=== PATIENT | female | born 1985 | race Two or more races ===

== ENCOUNTER 2020-01-26 16:13 | Emergency (ER) | payer SELFPAY ==
[~2020-01-26] VITALS: Ht 160 cm; Wt 72.6 kg
[2020-01-26 16:15] VITALS: BP 112/75
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
--- NOTE | 2020-01-26 16:35 | NUR ---
ED Nurse Note: Dr. Son is at bedside doing physical exam.
[2020-01-26] MEDS ORDERED: LIDODERM700 M1 TOPIC (16:41)
[2020-01-26] MEDS ORDERED: ROBAXIN-750750 MG PO (16:41)
[2020-01-26] MEDS ORDERED: ONDANSETRON ODT4 MG BC (16:41)
[2020-01-26] MEDS ORDERED: ACETAMINOPHEN325 M1 ORAL (16:41)
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
--- NOTE | 2020-01-26 16:54 | NUR ---
ED Nurse Note: patient changed into a hospital gown and skin assessment was done, no open skin or bruises noted at this time. skin intact dry. confirmed with Dr. Son that patient has pain, Dr. Son provided prescriptions for pain. instructions about prescriptions given to the patient, patient verbalized understanding.
[2020-01-26 16:56] VITALS: BP 119/72
--- NOTE | 2020-01-26 16:56 | NUR ---
ER DISCHARGE NOTE: Patient is cleared to be discharged per ERMD Dr Son, pt is aox4, on room air, with stable vital signs. pt was given dc and prescription instructions, pt was able to verbalize understanding, pt id band removed without complications. pt is able to ambulate with steady gait. pt took all belongings.
[2020-01-26 16:58] VITALS: BP 119/72
== END 2020-01-26 16:58 | disposition home or self-care (01) ==
LOC: EMR 16:57
DX: S39.012A Strain of muscle, fascia and tendon of lower back, initial encounter (principal); M79.10 Myalgia, unspecified site; V43.52XA Car driver injured in collision with other type car in traffic accident, initial encounter; Y92.410 Unspecified street and highway as the place of occurrence of the external cause; M25.562 Pain in left knee; M25.561 Pain in right knee; R51 Headache; M25.519 Pain in unspecified shoulder
CPT/HCPCS: 99282